=== PATIENT | female | born 2000 | race Caucasian/White ===

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

== ENCOUNTER 2020-12-30 19:24 | Emergency (ER) | payer BC ==
[~2020-12-30] VITALS: Ht 182.8 cm; Wt 71.7 kg
[~2020-12-30 19:24] MED LIST changes: +CEFUROXIME AXE250 MG PO; +DIFLUCAN150 MG PO; +MONO-LINYAH 281 EACH PO; +PYRIDIUM100 MG PO; +PYRIDIUM200 M1 PO; +SEPTDS PO
[2020-12-31 00:09] LABS: BILIRUBIN Negative (Negative); BLOOD 1+ (Negative); CLARITY Clear (Clear); COLOR Yellow (Yellow); GLUCOSE Negative (Negative); KETONE 1+ (Negative); LEUKO ESTERASE Trace (Negative); NITRITE Negative (Negative); PH 6.5 (4.5-8.0); SPECIFIC GRAVITY >= 1.030 (1.001-1.030)
[2020-12-31 00:21] LABS: EPITHELIAL CELLS 16-20; RBC 16-20 rbc/hpf (0-2)
[2020-12-31 00:22] LABS: BACTERIA TRACE
[2020-12-31] MEDS ORDERED: CYCLOBENZAPRINE10 MG PO (01:38)
== END 2020-12-31 01:40 | disposition home or self-care (01) ==
LOC: ED 19:24
PROVIDERS: Hospitalist
DX: S39.012A Strain of muscle, fascia and tendon of lower back, initial encounter (principal); Z79.899 Other long term (current) drug therapy; X58.XXXA Exposure to other specified factors, initial encounter; Y93.89 Activity, other specified; Y92.89 Other specified places as the place of occurrence of the external cause; Y99.8 Other external cause status